=== PATIENT | male | born 1955 | race Caucasian/White ===

== ENCOUNTER 2019-06-14 02:08 | Emergency (ER) | payer OTHER ==
[2019-06-14] MEDS ORDERED: Pepcid 20 MG VIAL IV ONE ×2 (02:24→02:34)
[2019-06-14] MEDS ORDERED: BENADRYL 50 MG/ML IV ONE (02:24)
[2019-06-14] MEDS ORDERED: Racepinephrine INH Solution 2.25% IH ONE ×2 (02:25→02:32)
[2019-06-14] MEDS ORDERED: Decadron 4 MG INJ IV ONE (02:25)
--- NOTE | 2019-06-14 02:31 | ERPHSYRPT ---
- History of Present Illness Time Seen by Provider: 06/14/19 02:20 Source: patient Exam Limitations: no limitations Patient Subjective Stated Complaint: pt c/o tongue swelling Triage Nursing Assessment: pt c/o waking up with tongue swollen on left side. pt states, "I had chills before I went to bed". Pt took benadryl 50 mg at 0145. Physician History: 63 years old male with history of hypertension on amlodipine/benazepril presented in the ER with chief complaint of left sided tongue swelling which woke him up from sleep almost an hour and a half ago prior to arrival. He took 50 mg Benadryl but swelling does not seem to be improving but is actually increasing. he is complaining of some soreness/scratchiness in the throat but no difficulty breathing at present. Denies any history of angioedema or allergic reactions in the past. No fever or had some chills therefore he went to bed. Timing/Duration: today Severity: moderate Associated Symptoms: shortness of breath Allergies/Adverse Reactions: Penicillins Allergy (Intermediate, Verified 06/14/19 02:25) pt unsure Home Medications: Amlodipine/Atorvastatin [Amlodipine-Atorvast 2.5-10 mg] 1 tab PO HS 06/14/19 [ History] Metoprolol Succinate 100 mg [Toprol Xl 100 MG] 100 mg PO DAILY 06/14/19 [ History] Hx Tetanus, Diphtheria Vaccination/Date Given: Yes Hx Influenza Vaccination/Date Given: No Hx Pneumococcal Vaccination/Date Given: No Immunizations Up to Date: Yes Travel Risk - International Travel Have you traveled outside of the country in past 3 weeks: No (N) If Yes where:: [place] - Coronavirus Screening Has patient experienced Coronavirus symptoms: No - Review of Systems Constitutional: No Symptoms Eyes: No Symptoms Ears, Nose, & Throat: Mouth Swelling, Throat Swelling Respiratory: No Symptoms Cardiac: No Symptoms Abdominal/Gastrointestinal: No Symptoms Genitourinary Symptoms: No Symptoms Musculoskeletal: No Symptoms Skin: No Symptoms Neurological: No Symptoms Psychological: No Symptoms Endocrine: No Symptoms Hematologic/Lymphatic: No Symptoms Immunological/Allergic: No Symptoms - Past Medical History Pertinent Past Medical History: Yes Neurological History: No Pertinent History ENT History: No Pertinent History Cardiac History: Hypertension Respiratory History: No Pertinent History Endocrine Medical History: No Pertinent History Musculoskeletal History: Arthritis GI Medical History: No Pertinent History History: No Pertinent History Psycho-Social History: No Pertinent History Male Reproductive Disorders: No Pertinent History Other Medical History: BILATERAL KNEE SCOPES, RTC REPAIR BILATERAL SHOULDERS - Past Surgical History Past Surgical History: Yes (orthopedic) Neuro Surgical History: No Pertinent History Cardiac: No Pertinent History Respiratory: No Pertinent History Gastrointestinal: No Pertinent History Genitourinary: No Pertinent History Musculoskeletal: Joint Replacement, Orthopedic Surgery Male Surgical History: No Pertinent History Other Surgical History: shoulder sx both side, lt knee replacement - Social History Smoking Status: Former smoker Exposure to second hand smoke: Yes Alcohol Use: Chronic Drug Use: none Patient Lives Alone: No - Nursing Vital Signs Nursing Vital Signs: Initial Vital Signs Temperature 97.4 F 06/14/19 02:13 Pulse Rate 64 06/14/19 02:13 Respiratory Rate 17 06/14/19 02:13 Blood Pressure 147/88 06/14/19 02:13 O2 Sat by Pulse Oximetry 97 06/14/19 02:13 Pain Scale Pain Intensity 0 - Physical Exam General Appearance: no apparent distress Eye Exam: PERRL/EOMI, eyes nml inspection Ears, Nose, Throat Exam: TMs normal, pharyngeal erythema, other (Swollen left half of tongue. Uvula and posterior pharyngeal moderate erythema but no definite or swelling. Not in any respiratory distress.) Neck Exam: normal inspection, non-tender, supple Respiratory Exam: normal breath sounds, lungs clear, respiratory distress Cardiovascular Exam: regular rate/rhythm, normal heart sounds Gastrointestinal/Abdomen Exam: soft Extremity Exam: normal inspection Neurologic Exam: alert, oriented x 3, cooperative Skin Exam: normal color Lymphatic Exam: adenopathy SpO2 Interpretation: normal SpO2: 97 O2 Delivery: Room Air - Course Nursing assessment & vital signs reviewed: Yes Ordered Tests: Active Orders 24 hr Category Date Time Status Isolation, Initiate & Maintain Q4H Care 06/14/19 02:24 Active CBC W DIFF Stat Lab 06/14/19 02:41 Completed CMP Stat Lab 06/14/19 02:41 Completed Respiratory Therapy Assessment DAILY RT 06/14/19 02:39 Active Medication Summary Discontinued Medications Generic Name Dose Route Start Last Admin Trade Name Freq PRN Reason Stop Dose Admin Dexamethasone Sodium Phosphate 10 mg 06/14/19 02:25 06/14/19 02:39 Decadron 4 Mg Inj IV 06/14/19 02:26 10 mg STAT ONE Administration Dexamethasone Sodium Phosphate Confirm 06/14/19 02:34 Decadron 10mg Inj. Administered 06/14/19 02:35 Dose 10 mg .ROUTE .STK-MED ONE Diphenhydramine HCl 50 mg 06/14/19 02:24 06/14/19 02:39 Benadryl 50 Mg/Ml IV 06/14/19 02:25 50 mg STAT ONE Administration Diphenhydramine HCl Confirm 06/14/19 02:34 Benadryl 50 Mg/Ml Administered 06/14/19 02:35 Dose 50 mg .ROUTE .STK-MED ONE Epinephrine 0.5 ml 06/14/19 02:25 06/14/19 02:36 Racepinephrine Inh Solution 2.25% IH 06/14/19 02:26 0.5 ml STAT ONE Administration Epinephrine Confirm 06/14/19 02:32 Racepinephrine Inh Solution 2.25% Administered 06/14/19 02:33 Dose 0.5 ml IH .STK-MED ONE Famotidine 20 mg 06/14/19 02:24 06/14/19 02:39 Pepcid 20 Mg Vial IV 06/14/19 02:25 20 mg STAT ONE Administration Famotidine Confirm 06/14/19 02:34 Pepcid 20 Mg Vial Administered 06/14/19 02:35 Dose 20 mg IV .STK-MED ONE Sodium Chloride Confirm 06/14/19 02:32 Sodium Chloride 3 Ml Ud Nebules Administered 06/14/19 02:33 Dose 3 ml IH .STK-MED ONE Lab/Rad Data: Laboratory Result Diagrams 06/14/19 02:41 06/14/19 02:41 Laboratory Results 06/14/19 06/14/19 Range/Units 02:41 02:41 WBC 5.4 (4.0-10.5) K/mm3 RBC 4.00 L (4.1-5.6) M/mm3 Hgb 13.9 (12.5-18.0) gm/dl Hct 40.9 L (42-50) % MCV 102.3 H (78-100) fl MCH 34.8 H (26-32) pg MCHC 34.0 (32-36) g/dl RDW 13.2 (11.5-14.0) % Plt Count 263 (150-450) K/mm3 MPV 8.8 (7.5-11.0) fl Gran % 50.6 (36.0-66.0) % Eos # (Auto) 0.38 (0-0.5) Absolute Lymphs (auto) 1.50 (1.0-4.6) Absolute Monos (auto) 0.75 (0.0-1.3) Lymphocytes % 27.8 (24.0-44.0) % Monocytes % 13.9 H (0.0-12.0) % Eosinophils % 7.1 H (0.00-5.0) % Basophils % 0.6 (0.0-0.4) % Absolute Granulocytes 2.73 (1.4-6.9) Basophils # 0.03 (0-0.4) Sodium 140 (137-145) mmol/L Potassium 4.1 (3.5-5.1) mmol/L Chloride 104 (98-107) mmol/L Carbon Dioxide 28 (22-30) mmol/L Anion Gap 11.4 (5-15) MEQ/L BUN 17 (9-20) mg/dL Creatinine 0.89 (0.66-1.25) mg/dL Estimated GFR > 60.0 ML/MIN Glucose 101 (74-106) mg/dL Calcium 9.3 (8.4-10.2) mg/dL Total Bilirubin 0.60 (0.2-1.3) mg/dL AST 33 (17-59) U/L ALT 25 (0-50) U/L Alkaline Phosphatase 140 H (38-126) U/L Serum Total Protein 7.5 (6.3-8.2) g/dL Albumin 3.9 (3.5-5.0) g/dL - Progress Progress: improved, re-examined Progress Note: 06/14/19 06:48 63 years old is evaluated for tongue swelling/angioedema. He is given Decadron/ Benadryl/Pepcid along with racemic epi, on reevaluation his swelling is much improved. It is not completely back to normal. I have recommended observation admission but patient wants to go home. He has no difficulty breathing or swallowing. Patient feels much improved and does not think he needs to be admitted. I have discussed with Dr. Figueroa with his primary care and patient would have an appointment this afternoon. I have discussed with patient not to take benazepril and follow-up with his PCP this afternoon. Discussed signs symptoms of worsening needing return to ER which he seems understanding. 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 Follow-up with your primary care physician this afternoon in [place] office. Continue with steroids/Benadryl/Pepcid. Call 911 or return to ER for swelling tongue, throat, difficulty breathing or swallowing. Prescriptions: Diphenhydramine HCl 25 mg [Benadryl 25 mg Capsule] 25 mg PO Q4H PRN PRN # 20 capsule PRN Reason: Allergies Famotidine 20 mg [Pepcid 20 MG] 20 mg PO BID #14 tablet Prednisone 50 mg PO DAILY #5 tablet
[2019-06-14] MEDS ORDERED: Sodium Chloride 3 ML UD NEBULES IH ONE (02:32)
[2019-06-14] MEDS ORDERED: BENADRYL 50 MG/ML ONE (02:34)
[2019-06-14] MEDS ORDERED: DECADRON 10MG INJ. ONE (02:34)
[2019-06-14 02:44] LABS: Absolute Neutrophil Ct (ANC) 2.73 (1.4-6.9); BASOPHIL % 0.6 % (0.0-0.4); Basophil (Absolute #) 0.03 (0-0.4); Eosinophil % 7.1 % (0.00-5.0); Eosinophil (Absolute #) 0.38 (0-0.5); Hematocrit 40.9 % (42-50); Hemoglobin 13.9 gm/dl (12.5-18.0); Lymphocytes % 27.8 % (24.0-44.0); Mean Cell Volume 102.3 fl (78-100); Mean Corpuscular Hemoglobin 34.8 pg (26-32); Mean Platelet Volume 8.8 fl (7.5-11.0); Monocyte (Absolute #) 0.75 (0.0-1.3); Monocytes % 13.9 % (0.0-12.0); Neutrophil % 50.6 % (36.0-66.0); Platelet Count 263 K/mm3 (150-450); Red Cell Distribution Width 13.2 % (11.5-14.0); White Blood Count 5.4 K/mm3 (4.0-10.5)
[2019-06-14 02:55] LABS: ALBUMIN 3.9 g/dL (3.5-5.0); ALKALINE PHOSPHATASE 140 U/L (38-126); ANION GAP 11.4 MEQ/L (5-15); BLOOD UREA NITROGEN 17 mg/dL (9-20); CHLORIDE 104 mmol/L (98-107); Calcium 9.3 mg/dL (8.4-10.2); Carbon Dioxide 28 mmol/L (22-30); Creatinine 1 0.89 mg/dL (0.66-1.25); Glucose 101 mg/dL (74-106); Potassium 4.1 mmol/L (3.5-5.1); SGOT/AST 33 U/L (17-59); SGPT/ALT 25 U/L (0-50); SODIUM 140 mmol/L (137-145); Total Protein 7.5 g/dL (6.3-8.2)
[2019-06-14 06:46] VITALS: BP 121/80; PULSE 70
[2019-06-14 06:54] VITALS: O2SAT 97
== END 2019-06-14 07:11 | disposition home or self-care (01) ==
LOC: ED 02:08
DX: T78.3XXA Angioneurotic edema, initial encounter (principal); T46.4X5A Adverse effect of angiotensin-converting-enzyme inhibitors, initial encounter; I10 Essential (primary) hypertension; Z79.899 Other long term (current) drug therapy; R06.02 Shortness of breath
CPT/HCPCS: 36000; 36415; 80053; 85025; 93041; 94640; 96374; 96375; 99284; 99291; J1100; J1200

== ENCOUNTER 2020-01-08 16:23 | Emergency (ER) | payer OTHER ==
--- NOTE | 2020-01-08 17:04 | ERPHSYRPT ---
- History of Present Illness Time Seen by Provider: 01/08/20 16:45 Source: patient Exam Limitations: no limitations Patient Subjective Stated Complaint: Numbness Triage Nursing Assessment: Patient ambulated back to ED and transferred self to bed. Patient A+O X3. Patient's skin pink, warm and dry. Patient complains of left sided numbness to chest, neck, eye and ear. Patient states he had surgery to right shoulder today at 0900 in [facility]. Patient states he got home around 1300 and started noticing the left side of his chest and neck going numb. Patient IBARRA well. Patient states he had a nerve block during surgery and called his surgeon and was told to come to ED for eval. BS 131. Physician History: Patient had a left shoulder surgery done at the [place] under the local regional block. Marco started at 9:00 and it was finished at 11:30 AM. Patient started having numbness on the left side of the chest face and the ear at 1:00 today. The patient states that he is neck was feeling heavy at that time. The numbness has improved since then. He talked to his orthopedic surgeon who told him to come to the ER to be checked out for stroke. Patient does not have any other neuro symptoms Timing/Duration: today Severity: mild Modifying Factors: Worsens With: immobilization, medication, movement, rest Associated Symptoms: No nausea, No vomiting, No abdominal pain, No shortness of breath, No heartburn, No diaphoresis, No cough, No chills, No loss of appetite, No malaise Allergies/Adverse Reactions: Penicillins Allergy (Intermediate, Verified 01/08/20 16:34) pt unsure benazepril Allergy (Verified 01/08/20 16:36) Difficulty Swallowing Patient states caused swelling to tongue and throat; almost needed tubed. Home Medications: Amlodipine/Atorvastatin [Amlodipine-Atorvast 2.5-10 mg] 1 tab PO HS 06/14/19 [History] Metoprolol Succinate 100 mg [Toprol Xl 100 MG] 100 mg PO DAILY 06/14/19 [History] Hx Tetanus, Diphtheria Vaccination/Date Given: Yes Hx Influenza Vaccination/Date Given: No Hx Pneumococcal Vaccination/Date Given: No Immunizations Up to Date: Yes Travel Risk - International Travel Have you traveled outside of the country in past 3 weeks: No - Coronavirus Screening Are you exhibiting any of the following symptoms?: No Close contact with a COVID-19 positive Pt in past 14-21 Days: No - Review of Systems Constitutional: No Fever, No Chills Eyes: No Symptoms Ears, Nose, & Throat: No Symptoms Respiratory: No Cough, No Dyspnea Cardiac: No Chest Pain, No Edema, No Syncope Abdominal/Gastrointestinal: No Abdominal Pain, No Nausea, No Vomiting, No Diarrhea Genitourinary Symptoms: No Dysuria Musculoskeletal: No Back Pain, No Neck Pain Skin: No Rash Neurological: Dizziness, Focal Weakness, Parasthesia, Sensory Changes, Other (Left facial, left chest and left ear numbness.) Psychological: No Symptoms Endocrine: No Symptoms All Other Systems: Reviewed and Negative - Past Medical History Pertinent Past Medical History: Yes Neurological History: No Pertinent History ENT History: No Pertinent History Cardiac History: High Cholesterol, Hypertension Respiratory History: No Pertinent History Endocrine Medical History: No Pertinent History Musculoskeletal History: Arthritis GI Medical History: No Pertinent History History: No Pertinent History Psycho-Social History: No Pertinent History Male Reproductive Disorders: No Pertinent History Other Medical History: BILATERAL KNEE SCOPES, RTC REPAIR BILATERAL SHOULDERSX 2 - Past Surgical History Past Surgical History: Yes (orthopedic) Neuro Surgical History: No Pertinent History Cardiac: No Pertinent History Respiratory: No Pertinent History Gastrointestinal: No Pertinent History Genitourinary: No Pertinent History Musculoskeletal: Joint Replacement, Orthopedic Surgery Male Surgical History: No Pertinent History Other Surgical History: shoulder sx both side, lt knee replacement - Social History Smoking Status: Former smoker Exposure to second hand smoke: Yes Alcohol Use: Chronic Drug Use: none Patient Lives Alone: No - Nursing Vital Signs Nursing Vital Signs: Initial Vital Signs Temperature 98.0 F 01/08/20 16:39 Pulse Rate 86 01/08/20 16:39 Respiratory Rate 18 01/08/20 16:39 Blood Pressure 153/89 01/08/20 16:39 O2 Sat by Pulse Oximetry 95 01/08/20 16:39 Pain Scale Pain Intensity 0 - Physical Exam General Appearance: no apparent distress, alert Eye Exam: PERRL/EOMI, eyes nml inspection Ears, Nose, Throat Exam: normal ENT inspection, TMs normal, pharynx normal, m oist mucous membranes Neck Exam: normal inspection, non-tender, supple, full range of motion Respiratory Exam: normal breath sounds, lungs clear, No respiratory distress Cardiovascular Exam: regular rate/rhythm, normal heart sounds, normal peripheral pulses Gastrointestinal/Abdomen Exam: soft, normal bowel sounds, No tenderness, No mass Back Exam: normal inspection, normal range of motion, No CVA tenderness, No vertebral tenderness Extremity Exam: normal inspection, normal range of motion, pelvis stable Neurologic Exam: alert, oriented x 3, cooperative, normal mood/affect, nml cerebellar function, nml station & gait, other (Left facial, left chest and left ear numbness.), No motor deficits, No disoriented, No confusion, No agitation, No uncooperative, No intoxicated appearance, No depressed mood/affect, No motor weakness, No facial droop, No slurred speech, No aphasia, No dysarthria, No abnormal cerebellar tests, No abnormal educational administration teacher II-XII, No EOM palsy Skin Exam: normal color, warm, dry, No rash Lymphatic Exam: No adenopathy SpO2: 95 - Course Nursing assessment & vital signs reviewed: Yes EKG Interpreted by Me: RATE (86), NORMAL AXIS, NORMAL INTERVALS, NORMAL QRS, Q-wave Ordered Tests: Active Orders 24 hr Category Date Time Status Sack Department Supervisor STAT Care 01/08/20 16:45 Active EKG-ER Only STAT Care 01/08/20 16:45 Active IV Insertion STAT Care 01/08/20 16:45 Active NPO (ED) STAT Care 01/08/20 16:45 Active HEAD WITHOUT CONTRAST [CT] Stat Exams 01/08/20 16:45 Completed CBC W DIFF Stat Lab 01/08/20 17:00 Completed CMP Stat Lab 01/08/20 17:00 Completed POCT GLUCOSE Stat Lab 01/08/20 16:42 Completed TROPONIN Stat Lab 01/08/20 17:00 Completed Lab/Rad Data: Laboratory Result Diagrams 01/08/20 17:00 01/08/20 17:00 Laboratory Results 01/08/20 01/08/20 01/08/20 Range/Units 17:00 17:00 17:00 WBC 10.5 (4.0-10.5) K/mm3 RBC 4.13 (4.1-5.6) M/mm3 Hgb 15.1 (12.5-18.0) gm/dl Hct 42.5 (42-50) % MCV 102.9 H (78-100) fl MCH 36.6 H (26-32) pg MCHC 35.5 (32-36) g/dl RDW 13.0 (11.5-14.0) % Plt Count 260 (150-450) K/mm3 MPV 9.1 (7.5-11.0) fl Gran % 90.7 H (36.0-66.0) % Eos # (Auto) 0.01 (0-0.5) Absolute Lymphs (auto) 0.55 L (1.0-4.6) Absolute Monos (auto) 0.42 (0.0-1.3) Lymphocytes % 5.2 L (24.0-44.0) % Monocytes % 4.0 (0.0-12.0) % Eosinophils % 0.1 (0.00-5.0) % Basophils % 0.0 (0.0-0.4) % Absolute Granulocytes 9.55 H (1.4-6.9) Basophils # 0 (0-0.4) Sodium 136 L (137-145) mmol/L Potassium 4.5 (3.5-5.1) mmol/L Chloride 106 (98-107) mmol/L Carbon Dioxide 21 L (22-30) mmol/L Anion Gap 13.4 (5-15) MEQ/L BUN 18 (9-20) mg/dL Creatinine 0.92 (0.66-1.25) mg/dL Estimated GFR > 60.0 ML/MIN Glucose 138 H (74-106) mg/dL POC Glucometer (74 to 106) mg/dL Calcium 9.8 (8.4-10.2) mg/dL Total Bilirubin 0.50 (0.2-1.3) mg/dL AST 40 (17-59) U/L ALT 36 (0-50) U/L Alkaline Phosphatase 117 (38-126) U/L Troponin I < 0.012 (0.000-0.034) ng/mL Serum Total Protein 7.4 (6.3-8.2) g/dL Albumin 4.3 (3.5-5.0) g/dL 01/08/20 Range/Units 16:42 WBC (4.0-10.5) K/mm3 RBC (4.1-5.6) M/mm3 Hgb (12.5-18.0) gm/dl Hct (42-50) % MCV (78-100) fl MCH (26-32) pg MCHC (32-36) g/dl RDW (11.5-14.0) % Plt Count (150-450) K/mm3 MPV (7.5-11.0) fl Gran % (36.0-66.0) % Eos # (Auto) (0-0.5) Absolute Lymphs (auto) (1.0-4.6) Absolute Monos (auto) (0.0-1.3) Lymphocytes % (24.0-44.0) % Monocytes % (0.0-12.0) % Eosinophils % (0.00-5.0) % Basophils % (0.0-0.4) % Absolute Granulocytes (1.4-6.9) Basophils # (0-0.4) Sodium (137-145) mmol/L Potassium (3.5-5.1) mmol/L Chloride (98-107) mmol/L Carbon Dioxide (22-30) mmol/L Anion Gap (5-15) MEQ/L BUN (9-20) mg/dL Creatinine (0.66-1.25) mg/dL Estimated GFR ML/MIN Glucose (74-106) mg/dL POC Glucometer 131 H (74 to 106) mg/dL Calcium (8.4-10.2) mg/dL Total Bilirubin (0.2-1.3) mg/dL AST (17-59) U/L ALT (0-50) U/L Alkaline Phosphatase (38-126) U/L Troponin I (0.000-0.034) ng/mL Serum Total Protein (6.3-8.2) g/dL Albumin (3.5-5.0) g/dL - Progress Progress: improved Progress Note: 01/08/20 18:49 And is asymptomatic. A CT scan normal. Other work-up is negative. Patient does not have any chest pain or shortness of breath left facial and neck paresthesia was probably secondary to the local block that was done earlier today. Patient wants to go home. Acute life or limb threatening condition on discharge. Counseled pt/family regarding: lab results, diagnosis, need for follow-up, rad results - Departure Departure Disposition: Home Clinical Impression: Facial paresthesia Condition: Good Critical Care Time: No Referrals: ARMANI,KARTHIK, MD [Primary Care Provider] - Follow Up with PCP
[2020-01-08 17:06] LABS: Absolute Neutrophil Ct (ANC) 9.55 (1.4-6.9); Basophil (Absolute #) 0 (0-0.4); Eosinophil % 0.1 % (0.00-5.0); Eosinophil (Absolute #) 0.01 (0-0.5); Hematocrit 42.5 % (42-50); Hemoglobin 15.1 gm/dl (12.5-18.0); Lymphocyte (Absolute #) 0.55 (1.0-4.6); Lymphocytes % 5.2 % (24.0-44.0); Mean Cell Volume 102.9 fl (78-100); Mean Corpuscular Hemoglobin 36.6 pg (26-32); Mean Corpuscular Hgb Concent. 35.5 g/dl (32-36); Mean Platelet Volume 9.1 fl (7.5-11.0); Monocyte (Absolute #) 0.42 (0.0-1.3); Neutrophil % 90.7 % (36.0-66.0); Platelet Count 260 K/mm3 (150-450); Red Blood Count 4.13 M/mm3 (4.1-5.6); White Blood Count 10.5 K/mm3 (4.0-10.5)
--- NOTE | 2020-01-08 17:25 | XRAY ---
Indication: Left face and chest chest numbness radiating left arm. Multiple contiguous axial images obtained through the head without contrast. Comparison: September 21, 2014. Stable age-appropriate global atrophy. No acute intracranial hemorrhage, abnormal extra-axial fluid collection, or mass effect. Fourth ventricle is midline without hydrocephalus. Ray-white matter differentiation preserved. Bony calvarium intact. Stable partially visualized 2.5 cm left maxillary sinus polyp/retention cyst. Remaining visualized paranasal sinuses and mastoid air cells are clear. Impression: Stable normal aging brain and left maxillary sinus polyp/retention cyst. No new or acute intracranial abnormalities.
[2020-01-08 17:41] LABS: ALBUMIN 4.3 g/dL (3.5-5.0); ALKALINE PHOSPHATASE 117 U/L (38-126); ANION GAP 13.4 MEQ/L (5-15); BLOOD UREA NITROGEN 18 mg/dL (9-20); CHLORIDE 106 mmol/L (98-107); Calcium 9.8 mg/dL (8.4-10.2); Carbon Dioxide 21 mmol/L (22-30); Creatinine 1 0.92 mg/dL (0.66-1.25); EST GLOMERULAR FILTRATION RATE > 60.0 ML/MIN; Glucose 138 mg/dL (74-106); Potassium 4.5 mmol/L (3.5-5.1); SGOT/AST 40 U/L (17-59); SGPT/ALT 36 U/L (0-50); SODIUM 136 mmol/L (137-145); Total Protein 7.4 g/dL (6.3-8.2)
[2020-01-08 19:05] VITALS: BP 132/7; PULSE 83; O2SAT 94
[2020-01-08 22:16] LABS: Slide Review 1 YES
== END 2020-01-08 19:13 | disposition home or self-care (01) ==
LOC: ED 16:23
DX: R20.2 Paresthesia of skin (principal); R42 Dizziness and giddiness; I10 Essential (primary) hypertension; E78.00 Pure hypercholesterolemia, unspecified; Z79.899 Other long term (current) drug therapy
CPT/HCPCS: 36000; 36415; 70450; 80053; 82947; 84484; 85025; 93005; 93041; 99284

== ENCOUNTER 2021-03-12 05:52 | Emergency (ER) | payer OTHER ==
[2021-03-12] MEDS ORDERED: solu-MEDROL 125 MG, Sterile H2O 10 ml 2 ML IV ONE ×4 (06:38→06:46)
[2021-03-12] MEDS ORDERED: Sterile H2O 10 ml IJ ONE (06:44)
[2021-03-12] MEDS ORDERED: solu-MEDROL ONE (06:44)
--- NOTE | 2021-03-12 06:52 | ERPHSYRPT ---
<ORLANDO TAPIA - Last Filed: 03/12/21 09:50> - History of Present Illness Source: patient Exam Limitations: no limitations Patient Subjective Stated Complaint: " I feel really short of breath, I've been coughing and my body aches all over." Triage Nursing Assessment: Pt presents to ER with complaints of shortness of breath, cough, body aches x 3 days. States shortness of breath got increasingly worse tonight along with symptoms of dizziness and lightheadness. Pt states has had nausea, vomiting, and diarrhea. Complains of productive cough with green sputum. Pt appears short of breath. Skin is hot, pink, and dry. Pt is alert and oriented x 3. Timing/Duration: day(s) (3), gradual onset, worse Activities at Onset: activity Severity of Dyspnea-Max: moderate Severity of Dyspnea-Current: moderate Modifying Factors: Worsens With: coughing, deep breath, exertion, lying down Associated Symptoms: cough, chest pain/discomfort, fever, wheezing, chills, heaviness, muscle spasms hands, painful breathing, productive cough, sweating, tightness Hx Tetanus, Diphtheria Vaccination/Date Given: Yes Hx Influenza Vaccination/Date Given: No Hx Pneumococcal Vaccination/Date Given: No Immunizations Up to Date: Yes <ANTONIO COLLIER - Last Filed: 03/13/21 21:10> - History of Present Illness Time Seen by Provider: 03/12/21 06:22 Physician History: 65-year-old male presented in the ER with 3 days history of cough congestion and shortness of breath along with body aches fatigue and tiredness. Patient reports cough productive of yellow-green sputum, more with lying down and having choking sensations since last night. Shortness of breath gets worse with activity with associated chest tightness and pressure/wheezing and feels difficulty taking a deep breath and having shallow respiration. Vaccinated for COVID-19. (ANTONIO COLLIER) Allergies/Adverse Reactions: Penicillins Allergy (Intermediate, Verified 03/12/21 06:06) pt unsure benazepril Allergy (Verified 03/12/21 06:06) Difficulty Swallowing Patient states caused swelling to tongue and throat; almost needed tubed. Home Medications: Metoprolol Succinate 100 mg [Toprol Xl 100 MG] 100 mg PO DAILY 06/14/19 [History] Travel Risk - International Travel Have you traveled outside of the country in past 3 weeks: No - Coronavirus Screening Are you exhibiting any of the following symptoms?: Yes Symptoms: Cough: New Onset, Shortness of Breath, Headaches/Body Aches/Fatigue Close contact with a COVID-19 positive Pt in past 14-21 Days: No - Vaccine Status Have you recieved a Covid-19 vaccination: Yes Imaging Scheduler: Moderna - Vaccination Dates Date of 2cond Vaccination (if applicable): 11/17/20 <ANTONIO COLLIER - Last Filed: 03/13/21 21:10> - Review of Systems Constitutional: Fever, Chills, Fatigue, Weakness Eyes: No Symptoms Ears, Nose, & Throat: Nose Congestion, Throat Swelling Respiratory: Cough, Dyspnea, Wheezing Cardiac: Chest Pain Abdominal/Gastrointestinal: No Symptoms Genitourinary Symptoms: No Symptoms Musculoskeletal: Myalgias Skin: No Symptoms Neurological: Headache Psychological: No Symptoms Endocrine: No Symptoms Hematologic/Lymphatic: No Symptoms Immunological/Allergic: No Symptoms <ANTONIO COLLIER - Last Filed: 03/13/21 21:10> - Past Medical History Pertinent Past Medical History: Yes Neurological History: No Pertinent History ENT History: No Pertinent History Cardiac History: Hypertension Respiratory History: No Pertinent History Endocrine Medical History: No Pertinent History Musculoskeletal History: Other GI Medical History: No Pertinent History History: No Pertinent History Psycho-Social History: No Pertinent History Male Reproductive Disorders: No Pertinent History Other Medical History: HX OF TWO PREVIOUS SURGERIES LEFT SHOULDER. HX OF PREVIOUS ARTHROSCOPY RIGHT KNEE. - Past Surgical History Past Surgical History: Yes (orthopedic) Neuro Surgical History: No Pertinent History Cardiac: No Pertinent History Respiratory: No Pertinent History Gastrointestinal: No Pertinent History Genitourinary: No Pertinent History Musculoskeletal: Joint Replacement, Orthopedic Surgery Male Surgical History: No Pertinent History Other Surgical History: shoulder sx both side, lt knee replacement - Social History Smoking Status: Former smoker Exposure to second hand smoke: No Alcohol Use: Chronic Drug Use: none Patient Lives Alone: No <ANTONIO COLLIER - Last Filed: 03/13/21 21:10> - Physical Exam General Appearance: no apparent distress, alert Eye Exam: PERRL/EOMI, eyes nml inspection Ears, Nose, Throat Exam: nasal congestion, pharyngeal erythema Neck Exam: normal inspection, non-tender, supple, full range of motion Respiratory Exam: normal breath sounds, lungs clear Cardiovascular/Chest Exam: normal heart sounds, tachycardia Abdominal/Gastrointestinal Exam: soft, normal bowel sounds, No tenderness Extremity Exam: non-tender, normal range of motion Neurologic Exam: alert, oriented x 3, cooperative, 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 Nonspecific T wave changes) <ANTONIO COLLIER - Last Filed: 03/13/21 21:10> Ordered Tests: Medication Summary Discontinued Medications Generic Name Dose Route Start Last Admin Trade Name Luisq PRN Reason Stop Dose Admin Acetaminophen 975 mg 03/12/21 06:56 03/12/21 06:58 Acetaminophen 325 Mg Tablet PO 03/12/21 06:57 975 mg STAT STA Administration Acetaminophen Confirm 03/12/21 06:58 Acetaminophen 325 Mg Tablet Administered 03/12/21 06:59 Dose 975 mg .ROUTE .STK-MED ONE Apixaban 5 mg 03/12/21 09:58 03/12/21 10:09 Apixaban 2.5 Mg Tablet PO 03/12/21 09:59 5 mg STAT ONE Administration Methylprednisolone Sodium 0 mg 03/12/21 06:38 03/12/21 06:47 Succinate 125 mg/ Sterile IV 03/12/21 06:39 Not Given Water 2 ml STAT ONE Methylprednisolone Sodium 0 mg 03/12/21 06:46 03/12/21 06:48 Succinate 125 mg/ Sterile IV 03/12/21 06:47 125 mg Water 2 ml STAT ONE Administration Enoxaparin Sodium 90 mg 03/12/21 09:46 03/12/21 09:54 Enoxaparin Sodium 120 Mg/0.8 Ml Syringe SQ 03/12/21 09:47 90 mg STAT STA Administration Enoxaparin Sodium Confirm 03/12/21 09:53 Enoxaparin Sodium 120 Mg/0.8 Ml Syringe Administered 03/12/21 09:54 Dose 120 mg SQ .STK-MED ONE Sodium Chloride 500 mls @ 500 mls/hr 03/12/21 07:38 03/12/21 10:20 Sodium Chloride 0.9% 500 Ml IV 03/12/21 08:37 Infused .Q1H ONE Infusion Sodium Chloride Confirm 03/12/21 07:49 Sodium Chloride 0.9% 500 Ml Administered 03/12/21 07:50 Dose 500 mls @ ud IV .STK-MED ONE Methylprednisolone Sodium Succinate Confirm 03/12/21 06:44 Methylprednis Sod Succ 125 Mg/2 Ml Vial Administered 03/12/21 06:45 Dose 125 mg .ROUTE .STK-MED ONE Sterile Water Confirm 03/12/21 06:44 Water For Injection,Sterile 10 Ml Vial Administered 03/12/21 06:45 Dose 10 ml IJ .STK-MED ONE Lab/Rad Data: Laboratory Result Diagrams 03/12/21 06:08 03/12/21 06:08 Laboratory Results 03/12/21 03/12/21 03/12/21 Range/Units 10:07 09:45 09:15 WBC (4.0-10.5) K/mm3 RBC (4.1-5.6) M/mm3 Hgb (12.5-18.0) gm/dl Hct (42-50) % MCV (78-100) fl MCH (26-32) pg MCHC (32-36) g/dl RDW (11.5-14.0) % Plt Count (150-450) K/mm3 MPV (7.5-11.0) fl Gran % (36.0-66.0) % Eos # (Auto) (0-0.5) Absolute Lymphs (auto) (1.0-4.6) Absolute Monos (auto) (0.0-1.3) Lymphocytes % (24.0-44.0) % Monocytes % (0.0-12.0) % Eosinophils % (0.00-5.0) % Basophils % (0.0-0.4) % Absolute Granulocytes (1.4-6.9) Basophils # (0-0.4) D-Dimer (215-500) ng/mL Sodium (137-145) mmol/L Potassium (3.5-5.1) mmol/L Chloride (98-107) mmol/L Carbon Dioxide (22-30) mmol/L Anion Gap (5-15) MEQ/L BUN (9-20) mg/dL Creatinine (0.66-1.25) mg/dL Estimated GFR ML/MIN Glucose (74-106) mg/dL Lactic Acid 0.8 (0.4-2.0) Calcium (8.4-10.2) mg/dL Magnesium (1.6-2.3) mg/dL Total Bilirubin (0.2-1.3) mg/dL AST (17-59) U/L ALT (0-50) U/L Alkaline Phosphatase (38-126) U/L Troponin I < 0.012 (0.000-0.034) ng/mL NT-Pro-B Natriuret Pep (0-900) pg/mL Serum Total Protein (6.3-8.2) g/dL Albumin (3.5-5.0) g/dL Influenza Type A Ag NEGATIVE (NEGATIVE) Influenza Type B Ag NEGATIVE (NEGATIVE) RSV (PCR) NEGATIVE (Negative) SARS-CoV-2 (PCR) POSITIVE A (NEGATIVE) 03/12/21 03/12/21 03/12/21 Range/Units 07:00 06:38 06:08 WBC (4.0-10.5) K/mm3 RBC (4.1-5.6) M/mm3 Hgb (12.5-18.0) gm/dl Hct (42-50) % MCV (78-100) fl MCH (26-32) pg MCHC (32-36) g/dl RDW (11.5-14.0) % Plt Count (150-450) K/mm3 MPV (7.5-11.0) fl Gran % (36.0-66.0) % Eos # (Auto) (0-0.5) Absolute Lymphs (auto) (1.0-4.6) Absolute Monos (auto) (0.0-1.3) Lymphocytes % (24.0-44.0) % Monocytes % (0.0-12.0) % Eosinophils % (0.00-5.0) % Basophils % (0.0-0.4) % Absolute Granulocytes (1.4-6.9) Basophils # (0-0.4) D-Dimer (215-500) ng/mL Sodium (137-145) mmol/L Potassium (3.5-5.1) mmol/L Chloride (98-107) mmol/L Carbon Dioxide (22-30) mmol/L Anion Gap (5-15) MEQ/L BUN (9-20) mg/dL Creatinine (0.66-1.25) mg/dL Estimated GFR ML/MIN Glucose (74-106) mg/dL Lactic Acid 3.0 H (0.4-2.0) Calcium (8.4-10.2) mg/dL Magnesium (1.6-2.3) mg/dL Total Bilirubin (0.2-1.3) mg/dL AST (17-59) U/L ALT (0-50) U/L Alkaline Phosphatase (38-126) U/L Troponin I < 0.012 (0.000-0.034) ng/mL NT-Pro-B Natriuret Pep (0-900) pg/mL Serum Total Protein (6.3-8.2) g/dL Albumin (3.5-5.0) g/dL Influenza Type A Ag NEGATIVE (NEGATIVE) Influenza Type B Ag NEGATIVE (NEGATIVE) RSV (PCR) (Negative) SARS-CoV-2 (PCR) (NEGATIVE) 03/12/21 03/12/21 03/12/21 Range/Units 06:08 06:08 06:08 WBC 6.9 (4.0-10.5) K/mm3 RBC 4.19 (4.1-5.6) M/mm3 Hgb 14.9 (12.5-18.0) gm/dl Hct 43.5 (42-50) % MCV 103.8 H (78-100) fl MCH 35.6 H (26-32) pg MCHC 34.3 (32-36) g/dl RDW 12.4 (11.5-14.0) % Plt Count 204 (150-450) K/mm3 MPV 9.4 (7.5-11.0) fl Gran % 79.3 H (36.0-66.0) % Eos # (Auto) 0.03 (0-0.5) Absolute Lymphs (auto) 0.69 L (1.0-4.6) Absolute Monos (auto) 0.70 (0.0-1.3) Lymphocytes % 10.0 L (24.0-44.0) % Monocytes % 10.2 (0.0-12.0) % Eosinophils % 0.4 (0.00-5.0) % Basophils % 0.1 (0.0-0.4) % Absolute Granulocytes 5.44 (1.4-6.9) Basophils # 0.01 (0-0.4) D-Dimer 1009 H* (215-500) ng/mL Sodium 135 L (137-145) mmol/L Potassium 4.1 (3.5-5.1) mmol/L Chloride 104 (98-107) mmol/L Carbon Dioxide 22 (22-30) mmol/L Anion Gap 13.2 (5-15) MEQ/L BUN 11 (9-20) mg/dL Creatinine 0.91 (0.66-1.25) mg/dL Estimated GFR > 60.0 ML/MIN Glucose 114 H (74-106) mg/dL Lactic Acid (0.4-2.0) Calcium 9.0 (8.4-10.2) mg/dL Magnesium 1.7 (1.6-2.3) mg/dL Total Bilirubin 0.70 (0.2-1.3) mg/dL AST 61 H (17-59) U/L ALT 48 (0-50) U/L Alkaline Phosphatase 105 (38-126) U/L Troponin I (0.000-0.034) ng/mL NT-Pro-B Natriuret Pep 221 (0-900) pg/mL Serum Total Protein 7.1 (6.3-8.2) g/dL Albumin 4.2 (3.5-5.0) g/dL Influenza Type A Ag (NEGATIVE) Influenza Type B Ag (NEGATIVE) RSV (PCR) (Negative) SARS-CoV-2 (PCR) (NEGATIVE) - Progress Progress: improved, re-examined Air Movement: good Blood Culture(s) Obtained: Yes Antibiotics given: Yes Discussed with : Bella Counseled pt/family regarding: lab results, diagnosis, need for follow-up, rad results <ORLANDO TAPIA - Last Filed: 03/12/21 09:50> - Progress Progress Note: 03/12/21 09:50 Chest x-ray shows new bibasilar infiltrates versus atelectasis. CAT scan of the chest shows a question of a nonoccluding left upper lobe and left lower lobe segmental pulmonary emboli. Medical decision making: I spoke with Dr. Friend, who is covering for this patient's primary care physician in his absence, regarding the patient's work-up and findings on CAT scan of the chest. Patient is hemodynamically stable. His oxygenation on room air is running between [address] Friend recommends anticoagulating him as an outpatient. I gave the patient Lovenox. We will then give him a dose of oral Eliquis and provide him with outpatient antibiotics, Eliquis, prednisone, and cough medicine as well as an inhaler of albuterol. I think this is reasonable. (ORLANDO TAPIA) - Departure Departure Disposition: Home Critical Care Time: Yes Critical Care Time(excluding separately billable procedures): Critical 30-74 mins (30) <ORLANDO TAPIA - Last Filed: 03/12/21 09:50> <ANTONIO COLLIER - Last Filed: 03/13/21 21:10> - Departure Clinical Impression: Upper respiratory infection, Left pulmonary embolus Condition: Stable Referrals: KARTHIK LOMELI MD [Primary Care Provider] - Follow up/PCP as directed Instructions: Shortness of Breath (Dyspnea) (DC), Pulmonary Embolism (Blood Clot in the Lungs) (DC), Coronavirus Disease 2019 (COVID-19) (DC) Additional Instructions: Take your medications as prescribed. Return to the emergency department if sym ptoms worsen. Quarantine yourself until the results of your COVID-19 test returned. Prescriptions: Hydrocodone/Acetaminophen [Hydrocodone-Acetamn 7.5-325/15] 10 ml PO Q8H PRN PRN #120 ml MDD 30 ml PRN Reason: Cough Prednisone 10 mg [Deltasone 10 mg] 10 mg PO TID #12 tablet Apixaban [Eliquis 5 mg Tablet] 5 mg PO BID #30 tablet Albuterol 8 gm Mdi Hfa [Ventolin Hfa MDI] 8 gm IH Q4H #1 gm Azithromycin 250 mg [Zithromax 250 MG TABLET] 250 mg PO ZPACK #6 tablet
[2021-03-12] MEDS ORDERED: TYLENOL 325 MG PO STA (06:56)
[2021-03-12] MEDS ORDERED: TYLENOL 325 MG ONE (06:58)
[2021-03-12 07:13] LABS: Absolute Neutrophil Ct (ANC) 5.44 (1.4-6.9); Basophil (Absolute #) 0.01 (0-0.4); Eosinophil % 0.4 % (0.00-5.0); Eosinophil (Absolute #) 0.03 (0-0.5); Hematocrit 43.5 % (42-50); Hemoglobin 14.9 gm/dl (12.5-18.0); Lymphocyte (Absolute #) 0.69 (1.0-4.6); Mean Cell Volume 103.8 fl (78-100); Mean Corpuscular Hemoglobin 35.6 pg (26-32); Mean Corpuscular Hgb Concent. 34.3 g/dl (32-36); Mean Platelet Volume 9.4 fl (7.5-11.0); Monocytes % 10.2 % (0.0-12.0); Neutrophil % 79.3 % (36.0-66.0); Platelet Count 204 K/mm3 (150-450); Red Blood Count 4.19 M/mm3 (4.1-5.6); Red Cell Distribution Width 12.4 % (11.5-14.0); White Blood Count 6.9 K/mm3 (4.0-10.5)
[2021-03-12 07:31] LABS: ALBUMIN 4.2 g/dL (3.5-5.0); ALKALINE PHOSPHATASE 105 U/L (38-126); ANION GAP 13.2 MEQ/L (5-15); BLOOD UREA NITROGEN 11 mg/dL (9-20); CHLORIDE 104 mmol/L (98-107); Carbon Dioxide 22 mmol/L (22-30); Creatinine 1 0.91 mg/dL (0.66-1.25); EST GLOMERULAR FILTRATION RATE > 60.0 ML/MIN; Glucose 114 mg/dL (74-106); MAGNESIUM 1.7 mg/dL (1.6-2.3); NT PRO BNP 221 pg/mL (0-900); Potassium 4.1 mmol/L (3.5-5.1); SGOT/AST 61 U/L (17-59); SGPT/ALT 48 U/L (0-50); SODIUM 135 mmol/L (137-145); Total Protein 7.1 g/dL (6.3-8.2)
[2021-03-12] MEDS ORDERED: Sodium Chloride 0.9% 500 ML 500 ML IV ONE ×2 (07:38→07:49)
[2021-03-12 07:50] LABS: INFLUENZA A NEGATIVE (NEGATIVE); INFLUENZA B NEGATIVE (NEGATIVE)
--- NOTE | 2021-03-12 09:26 | XRAY ---
Indication: Short of breath. Suspect Covid 19. Comparison: April 22, 2010. Portable chest less inflated with new bibasilar infiltrates versus atelectasis. Remaining heart and upper lungs unremarkable. Bony thorax intact again with mild osteopenia and degenerative changes.
--- NOTE | 2021-03-12 09:32 | XRAY ---
Indication: Short of breath, cough, congestion, chest pain, nausea, and vomiting. Multiple contiguous axial images obtained through the chest using 100 cc Isovue 370 contrast and PE protocol. Comparison: None There is adequate opacification of the pulmonary arteries. However mild respiration artifact limits evaluation of the more distal lobar and segmental branches. Query nonoccluding pulmonary emboli in the anterior segmental branch of the left lower lobe and lesser degree posterior segmental branch of the left upper lobe. Heart is not enlarged. Aorta is mildly arteriosclerotic without aneurysm/dissection. No pathologic mediastinal/hilar lymphadenopathy. Lungs demonstrates diffuse pulmonary edema and moderate bilateral dependent atelectasis greatest in both lung bases. No suspicious pulmonary mass, effusion, or pneumothorax. Bony thorax intact with mild degenerative changes throughout the spine. Limited upper abdomen demonstrates 3 hepatic hypodense lesions largest 1 cm, cysts versus hemangiomas. Impression: 1. Pulmonary embolus evaluation limited due to respiration artifact. Query nonoccluding left upper and left lower lobe segmental pulmonary emboli. 2. Diffuse pulmonary emphysema and bilateral dependent atelectasis 3. Hepatic hypodense lesions, cysts versus hemangiomas.
[2021-03-12] MEDS ORDERED: ENOXAPARIN SODIUM SQ STA (09:46)
[2021-03-12] MEDS ORDERED: ENOXAPARIN SODIUM SQ ONE (09:53)
[2021-03-12] MEDS ORDERED: ELIQUIS 2.5 MG TABLET PO ONE (09:58)
[2021-03-12 10:52] LABS: INFLUENZA A NEGATIVE (NEGATIVE); INFLUENZA B NEGATIVE (NEGATIVE); RESPIRATORY SYNCTIAL VIRUS NEGATIVE (Negative)
[2021-03-12 10:54] LABS: SARS-CoV-2 Xpert Express POSITIVE (NEGATIVE)
[2021-03-12 11:20] VITALS: BP 172/78; PULSE 72
[2021-03-13 21:11] VITALS: O2SAT 98
== END 2021-03-12 11:20 | disposition home or self-care (01) ==
LOC: ED 05:52
DX: J06.9 Acute upper respiratory infection, unspecified (principal); I26.99 Other pulmonary embolism without acute cor pulmonale; U07.1 COVID-19; R05.9 Cough, unspecified; R09.81 Nasal congestion; R06.02 Shortness of breath; M79.10 Myalgia, unspecified site; R53.83 Other fatigue; I10 Essential (primary) hypertension; Z79.891 Long term (current) use of opiate analgesic; Z79.52 Long term (current) use of systemic steroids; Z79.01 Long term (current) use of anticoagulants
CPT/HCPCS: 0241U; 36000; 36415; 71045; 71260; 80053; 83605; 83735; 83880; 84484; 85025; 85379; 87040; 87400; 93005; 96372; 96374; 99284; 99291; J1650; J2930; A9270-GY

== ENCOUNTER 2021-03-17 06:37 | Emergency (ER) | payer OTHER ==
--- NOTE | 2021-03-17 07:28 | ERPHSYRPT ---
- History of Present Illness Source: patient Exam Limitations: no limitations Patient Subjective Stated Complaint: Patient states he tested positive for COVID on Monday and has a blood clot. States he had a great day yesterday and didn't feel sick at all. Woke up at 2am with a severe headache. States pain increased in head then spread to left shoulder muscles. SOB increased around 0400 and it go so bad that he came to the ED. Triage Nursing Assessment: Patient brought back to ED in a W/C. He was assisted into bed. Patient SOB, pale, diaphoretic, cool to touch. He is alert and oriented and answering questions appropriately. Lungs diminished throughout. No cough noted. Denies chest pain. Physician History: 65 yo wm diagnosed w CV19/PE's on 03/12/20 on Eliquis presents w frontal KAMARA since 2:00AM. Pain is 3/10. He has nausea but denies vomiting/focal weakness/CP. Pt has dyspnea, but sats 94% on RA. Timing/Duration: other (2AM) Quality: aching Head Pain Location: frontal Severity of Pain-Max: severe Severity of Pain-Current: moderate Recent Head Trauma: no recent headache/trauma Associated Symptoms: fatigue, fever/chills, nausea/vomiting, nasal congestion, nasal drainage, No confusion, No dizziness, No facial pain, No flushing, No light-headedness, No loss of consciousness, No neck pain, No numbness in legs/feet, No rash, No sweating, No scotoma, No seizures, No sinus infection, No sensitive to light, No speech problems, No stiff neck, No trouble walking, No vision changes Previous symptoms: no prior history Allergies/Adverse Reactions: Penicillins Allergy (Intermediate, Verified 03/17/21 06:49) pt unsure benazepril Allergy (Verified 03/17/21 06:49) Difficulty Swallowing Patient states caused swelling to tongue and throat; almost needed tubed. 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 - Vaccination Dates Date of 2cond Vaccination (if applicable): 11/17/20 - Review of Systems Constitutional: No Symptoms, Fever, Chills, Fatigue, Lethargy Eyes: No Symptoms Ears, Nose, & Throat: No Symptoms, Nose Discharge Respiratory: No Symptoms, Cough, Dyspnea Cardiac: No Symptoms Abdominal/Gastrointestinal: No Symptoms, Nausea Genitourinary Symptoms: No Symptoms Musculoskeletal: No Symptoms, Arthralgias, Myalgias Skin: No Symptoms Neurological: No Symptoms, Headache Psychological: No Symptoms Endocrine: No Symptoms Hematologic/Lymphatic: No Symptoms Immunological/Allergic: No Symptoms - Past Medical History Pertinent Past Medical History: Yes Neurological History: No Pertinent History ENT History: No Pertinent History Cardiac History: Hypertension Respiratory History: Other Endocrine Medical History: No Pertinent History Musculoskeletal History: Other GI Medical History: No Pertinent History History: No Pertinent History Psycho-Social History: No Pertinent History Male Reproductive Disorders: No Pertinent History Other Medical History: HX OF TWO PREVIOUS SURGERIES LEFT SHOULDER. HX OF PREVIOUS ARTHROSCOPY RIGHT KNEE. COVID - Past Surgical History Past Surgical History: Yes (orthopedic) Neuro Surgical History: No Pertinent History Cardiac: No Pertinent History Respiratory: No Pertinent History Gastrointestinal: No Pertinent History Genitourinary: No Pertinent History Musculoskeletal: Joint Replacement, Orthopedic Surgery Male Surgical History: No Pertinent History Other Surgical History: shoulder sx both side, lt knee replacement - Social History Smoking Status: Former smoker Exposure to second hand smoke: No Alcohol Use: Chronic Drug Use: none Patient Lives Alone: No Significant Family History: no pertinent family hx - Nursing Vital Signs Nursing Vital Signs: Initial Vital Signs Temperature 97.6 F 03/17/21 06:49 Pulse Rate 69 03/17/21 06:49 Respiratory Rate 22 03/17/21 06:49 Blood Pressure 80/56 03/17/21 06:49 O2 Sat by Pulse Oximetry 96 03/17/21 06:49 Pain Scale Pain Intensity 4 Hypotensive - Physical Exam General Appearance: no apparent distress Eye Exam: PERRL/EOMI, eyes nml inspection Ears, Nose, Throat Exam: normal ENT inspection, TMs normal, pharynx normal, moist mucous membranes Neck Exam: normal inspection, non-tender, supple, full range of motion Respiratory Exam: normal breath sounds, lungs clear, airway intact Cardiovascular Exam: regular rate/rhythm, normal heart sounds, normal peripheral pulses, No murmur Gastrointestinal/Abdominal Exam: soft, normal bowel sounds Back Exam: normal inspection, normal range of motion Extremity Exam: normal inspection, normal range of motion Mental Status Exam: alert, oriented x 3, 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 Exam: normal hearing, normal speech, PERRL Motor/Sensory Exam: no motor deficit, no sensory deficit, no pronator drift DTR Exam: bicep (R): 2+, bicep (L): 2+ Skin Exam: normal color, warm, dry, No rash Lymphatic Exam: No adenopathy SpO2 Interpretation: normal SpO2: 96 O2 Delivery: Room Air - Course Nursing assessment & vital signs reviewed: Yes EKG Interpreted by Me: RATE (NSR/R71/Normal QT-QTc/No acute ST segment abnormalities) - CT Exams Head CT Interpretation: Discussed w/radiologist (Neg CT head) Ordered Tests: Active Orders 24 hr Category Date Time Status EKG-ER Only STAT Care 03/17/21 07:29 Completed HEAD WITHOUT CONTRAST [CT] Stat Exams 03/17/21 07:21 Completed CBC W DIFF Stat Lab 03/17/21 06:50 Completed CMP Stat Lab 03/17/21 06:50 Completed Manual Differential NC Stat Lab 03/17/21 06:50 Completed NT PRO BNP Stat Lab 03/17/21 06:50 Completed PROTIME WITH INR Stat Lab 03/17/21 06:50 Completed PTT Stat Lab 03/17/21 06:50 Completed TROPONIN Q3H Lab 03/17/21 06:50 Completed Medication Summary Discontinued Medications Generic Name Dose Route Start Last Admin Trade Name Freq PRN Reason Stop Dose Admin Sodium Chloride 1,000 mls @ 999 mls/hr 03/17/21 07:29 03/17/21 09:01 Sodium Chloride 0.9% 1000 Ml IV 03/17/21 08:29 Infused .Q1H1M STA Infusion Sodium Chloride Confirm 03/17/21 07:36 Sodium Chloride 0.9% 1000 Ml Administered 03/17/21 07:37 Dose 1,000 mls @ ud .ROUTE .STK-MED ONE Ketorolac Tromethamine 15 mg 03/17/21 08:51 03/17/21 08:55 Ketorolac Tromethamine 30 Mg/Ml Inj IV 03/17/21 08:52 15 mg STAT ONE Administration Ketorolac Tromethamine Confirm 03/17/21 08:54 Ketorolac Tromethamine 30 Mg/Ml Inj Administered 03/17/21 08:55 Dose 30 mg .ROUTE .STK-MED ONE Lab/Rad Data: Laboratory Result Diagrams 03/17/21 06:50 03/17/21 06:50 Laboratory Results 03/17/21 03/17/21 03/17/21 Range/Units 06:50 06:50 06:50 WBC (4.0-10.5) K/mm3 RBC (4.1-5.6) M/mm3 Hgb (12.5-18.0) gm/dl Hct (42-50) % MCV (78-100) fl MCH (26-32) pg MCHC (32-36) g/dl RDW (11.5-14.0) % Plt Count (150-450) K/mm3 MPV (7.5-11.0) fl Segmented Neutrophils (36.-66.) % Band Neutrophils (0.0-2.0) % Lymphocytes (Manual) (24-44) % Monocytes (Manual) (0.0-12.0) % Eosinophils (Manual) (0.00-3.0) % Atypical Lymphocytes % Platelet Estimate (NORMAL) RBC Morphology Polychromasia Poikilocytosis Anisocytosis PT 12.1 (9.4-12.5) SECONDS INR 1.03 (0.8-3.0) APTT 32.6 (25.1-36.5) SECONDS Sodium 134 L (137-145) mmol/L Potassium 4.4 (3.5-5.1) mmol/L Chloride 103 (98-107) mmol/L Carbon Dioxide 20 L (22-30) mmol/L Anion Gap 14.2 (5-15) MEQ/L BUN 21 H (9-20) mg/dL Creatinine 1.04 (0.66-1.25) mg/dL Estimated GFR > 60.0 ML/MIN Glucose 99 (74-106) mg/dL Calcium 9.2 (8.4-10.2) mg/dL Total Bilirubin 0.70 (0.2-1.3) mg/dL AST 62 H (17-59) U/L ALT 81 H (0-50) U/L Alkaline Phosphatase 121 (38-126) U/L Troponin I < 0.012 (0.000-0.034) ng/mL NT-Pro-B Natriuret Pep 71.1 (0-900) pg/mL Serum Total Protein 7.2 (6.3-8.2) g/dL Albumin 4.0 (3.5-5.0) g/dL 03/17/21 Range/Units 06:50 WBC 8.8 (4.0-10.5) K/mm3 RBC 4.51 (4.1-5.6) M/mm3 Hgb 15.8 (12.5-18.0) gm/dl Hct 46.2 (42-50) % MCV 102.4 H (78-100) fl MCH 35.0 H (26-32) pg MCHC 34.2 (32-36) g/dl RDW 12.5 (11.5-14.0) % Plt Count 283 (150-450) K/mm3 MPV 9.1 (7.5-11.0) fl Segmented Neutrophils 65 (36.-66.) % Band Neutrophils 2 (0.0-2.0) % Lymphocytes (Manual) 16 L (24-44) % Monocytes (Manual) 8 (0.0-12.0) % Eosinophils (Manual) 1 (0.00-3.0) % Atypical Lymphocytes 8 % Platelet Estimate NORMAL (NORMAL) RBC Morphology ABNORMAL Polychromasia 1+ Poikilocytosis 1+ Anisocytosis 1+ PT (9.4-12.5) SECONDS INR (0.8-3.0) APTT (25.1-36.5) SECONDS Sodium (137-145) mmol/L Potassium (3.5-5.1) mmol/L Chloride (98-107) mmol/L Carbon Dioxide (22-30) mmol/L Anion Gap (5-15) MEQ/L BUN (9-20) mg/dL Creatinine (0.66-1.25) mg/dL Estimated GFR ML/MIN Glucose (74-106) mg/dL Calcium (8.4-10.2) mg/dL Total Bilirubin (0.2-1.3) mg/dL AST (17-59) U/L ALT (0-50) U/L Alkaline Phosphatase (38-126) U/L Troponin I (0.000-0.034) ng/mL NT-Pro-B Natriuret Pep (0-900) pg/mL Serum Total Protein (6.3-8.2) g/dL Albumin (3.5-5.0) g/dL - Progress Progress: improved Progress Note: 03/17/21 08:52 1L NS bolus 15mg IV Toradol 03/17/21 12:02 Pt's BP increased w fluids. Sats 94% on room air Counseled pt/family regarding: lab results, diagnosis, need for follow-up, rad results - Departure Departure Disposition: Home Clinical Impression: COVID-19 Condition: Stable Critical Care Time: No Referrals: KARTHIK LOMELI MD [Primary Care Provider] - Follow up/PCP as directed Instructions: Shortness of Breath (Dyspnea) (DC) Additional Instructions: Get a pulse oximeter and monitor oxygen saturation 2-3 times a day Return to ER for persistent oxygen saturation less than 91% VitaminD 10,000units a day/[id number] a day/Pepcid 40mg a day Start Luvox 100mg a day Pulmicort 2 puffs twice a day Follow up with your family MD in 1-2 days Continue Eliquis Prescriptions: Budesonide [Pulmicort Flexhaler] 180 mcg IH BID #1 inh
[2021-03-17] MEDS ORDERED: Sodium Chloride 0.9% 1000 ML 1,000 ML IV STA (07:29)
[2021-03-17] MEDS ORDERED: Sodium Chloride 0.9% 1000 ML 1,000 ML ONE (07:36)
[2021-03-17 07:39] LABS: Hematocrit 46.2 % (42-50); Hemoglobin 15.8 gm/dl (12.5-18.0); Mean Cell Volume 102.4 fl (78-100); Mean Corpuscular Hgb Concent. 34.2 g/dl (32-36); Mean Platelet Volume 9.1 fl (7.5-11.0); Platelet Count 283 K/mm3 (150-450); Red Blood Count 4.51 M/mm3 (4.1-5.6); Red Cell Distribution Width 12.5 % (11.5-14.0); White Blood Count 8.8 K/mm3 (4.0-10.5)
[2021-03-17 07:41] LABS: INR 1.03 (0.8-3.0); PROTIME 12.1 SECONDS (9.4-12.5)
[2021-03-17 07:44] LABS: PTT 32.6 SECONDS (25.1-36.5)
[2021-03-17 07:51] LABS: ANISOCYTOSIS 1+; ATYPICAL LYMPHS 8 %; BAND 2 % (0.0-2.0); Eosinophil 1 % (0.00-3.0); Lymphocytes 16 % (24-44); Monocyte 8 % (0.0-12.0); Neutrophils 65 % (36.-66.); Poikilocytosis 1+; Polychromasia 1+; Total Cells Counted 100
[2021-03-17 07:52] LABS: Platelet Estimate NORMAL (NORMAL)
[2021-03-17 07:55] LABS: ALKALINE PHOSPHATASE 121 U/L (38-126); ANION GAP 14.2 MEQ/L (5-15); BLOOD UREA NITROGEN 21 mg/dL (9-20); CHLORIDE 103 mmol/L (98-107); Calcium 9.2 mg/dL (8.4-10.2); Carbon Dioxide 20 mmol/L (22-30); Creatinine 1 1.04 mg/dL (0.66-1.25); EST GLOMERULAR FILTRATION RATE > 60.0 ML/MIN; Glucose 99 mg/dL (74-106); NT PRO BNP 71.1 pg/mL (0-900); Potassium 4.4 mmol/L (3.5-5.1); SGOT/AST 62 U/L (17-59); SGPT/ALT 81 U/L (0-50); SODIUM 134 mmol/L (137-145); Total Protein 7.2 g/dL (6.3-8.2)
--- NOTE | 2021-03-17 08:39 | XRAY ---
Indication: Headache and short of breath. Multiple contiguous axial images obtained through the head without contrast. Comparison: January 08, 2020. Stable age-appropriate global atrophy. No acute intracranial hemorrhage, abnormal extra-axial fluid collection, or mass effect. Fourth ventricle is midline without hydrocephalus. Ray-white matter differentiation preserved. Bony calvarium intact. Stable 2.5 cm left maxillary sinus polyp/retention cyst. Remaining visualized paranasal sinuses and mastoid air cells are clear. Impression: Continued negative CT head without contrast exam again with incidental left maxillary sinus polyp/retention cyst.
[2021-03-17] MEDS ORDERED: TORAdol 30 mg Injection IV ONE (08:51)
[2021-03-17] MEDS ORDERED: TORAdol 30 mg Injection ONE (08:54)
[2021-03-17 09:19] VITALS: BP 122/73; PULSE 60
[2021-03-17 12:03] VITALS: O2SAT 96
== END 2021-03-17 09:19 | disposition home or self-care (01) ==
LOC: ED 06:37
DX: U07.1 COVID-19 (principal); R51.9 Headache, unspecified; I26.99 Other pulmonary embolism without acute cor pulmonale; R53.83 Other fatigue; R50.9 Fever, unspecified; R11.2 Nausea with vomiting, unspecified; R09.81 Nasal congestion; I10 Essential (primary) hypertension; Z79.01 Long term (current) use of anticoagulants
CPT/HCPCS: 36415; 70450; 80053; 83880; 84484; 85025; 85610; 85730; 93005; 96360; 96375; 99284; J1885

== ENCOUNTER 2023-04-09 13:36 | Emergency (ER) | payer MEDICARE ==
[2023-04-09] MEDS ORDERED: PROTONIX 40 MG IV IV ONE ×2 (13:57→14:07)
[2023-04-09] MEDS ORDERED: Sodium Chloride 0.9% 1000 ML 1,000 ML IV STA (13:57)
[2023-04-09 13:58] VITALS: PULSE 91; TEMP 97.5; O2SAT 94
[2023-04-09] MEDS ORDERED: Sodium Chloride 0.9% 1000 ML 1,000 ML ONE (14:07)
[2023-04-09 14:20] LABS: BASOPHIL % 0.7 % (0.0-0.4); Basophil (Absolute #) 0.05 x10^3/uL (0-0.4); Eosinophil % 1.9 % (0.00-5.0); Eosinophil (Absolute #) 0.13 x10^3/uL (0-0.5); Hematocrit 41.3 % (42-50); Hemoglobin 14.5 g/dL (12.5-18.0); IMMATURE GRAN # 0.03 x10^3u/L (0.00-0.03); IMMATURE GRAN % 0.4 % (0.00-0.4); Lymphocyte (Absolute #) 1.85 x10^3/uL (1.0-4.6); Lymphocytes % 27.3 % (24.0-44.0); Mean Cell Volume 100.2 fL (78-100); Mean Corpuscular Hemoglobin 35.2 pg (26-32); Mean Corpuscular Hgb Concent. 35.1 g/dL (32-36); Mean Platelet Volume 9.2 fL (7.5-11.0); Monocyte (Absolute #) 0.92 x10^3/uL (0.0-1.3); Monocytes % 13.6 % (0.0-12.0); Neutrophil % 56.1 % (36.0-66.0); Platelet Count 273 x10^3/uL (150-450); Red Blood Count 4.12 x10^6/uL (4.1-5.6); Red Cell Distribution Width 12.8 % (11.5-14.0); White Blood Count 6.8 x10^3/uL (4.0-10.5)
--- NOTE | 2023-04-09 14:29 | ERPHSYRPT ---
- History of Present Illness Time Seen by Provider: 04/09/23 14:26 Historian: patient Exam Limitations: no limitations Patient Subjective Stated Complaint: Pt states that he has had 2 bowel movements in the past hour and he had a lot of blood, one of the bowel movements did not have any bowel but a lot of blood only Triage Nursing Assessment: Pt brought self to the ER, vitals wnl, denies any pain, is going to the restroom approx every 5 minutes, pulses normal, skin n/w/d, no pain to abdomen with palpitation, skin n/w/d, diarrhea, bowel sounds heard in all 4 quadrants, abdomen distended Physician History: Pt states that he has had 2 bowel movements in the past hour and he had a lot of blood, one of the bowel movements did not have any bowel but a lot of blood only. denies any pain, is going to the restroom approximately every 5 minutes, Timing/Duration: today Associated Symptoms: weakness Previous symptoms: no prior history Allergies/Adverse Reactions: Penicillins Allergy (Intermediate, Verified 04/09/23 13:58) pt unsure benazepril Allergy (Verified 04/09/23 13:58) Difficulty Swallowing Patient states caused swelling to tongue and throat; almost needed tubed. Home Medications: Metoprolol Succinate 100 mg [Toprol Xl 100 MG] 100 mg PO DAILY 06/14/19 [History] Atorvastatin Calcium [Lipitor] 40 mg PO DAILY 04/09/23 [History] Celecoxib 200 mg PO DAILY 04/09/23 [History] Hydrochlorothiazide 25 mg [hydroDIURIL 25 MG] 25 mg PO DAILY 04/09/23 [History] Spironolactone 25 mg [Aldactone 25 MG] 25 mg PO DAILY 04/09/23 [History] Hx Tetanus, Diphtheria Vaccination/Date Given: Yes Hx Influenza Vaccination/Date Given: No Hx Pneumococcal Vaccination/Date Given: No Travel Risk - International Travel Have you traveled outside of the country in past 3 weeks: No - Coronavirus Screening Are you exhibiting any of the following symptoms?: No Close contact with a COVID-19 positive Pt in past 14-21 Days: No - Vaccine Status Have you recieved a Covid-19 vaccination: Yes [employer]: Moderna - Vaccination Dates Date of 2cond Vaccination (if applicable): 11/17/20 - Review of Systems Constitutional: No Fever, No Chills Eyes: No Symptoms Ears, Nose, & Throat: No Symptoms Respiratory: No Cough, No Dyspnea Cardiac: No Chest Pain, No Edema, No Syncope Abdominal/Gastrointestinal: Hematochezia, No Abdominal Pain, No Nausea, No Vomiting, No Diarrhea Genitourinary Symptoms: No Dysuria Musculoskeletal: No Back Pain, No Neck Pain Skin: No Rash Neurological: No Dizziness, No Focal Weakness, No Sensory Changes Psychological: No Symptoms Endocrine: No Symptoms All Other Systems: Reviewed and Negative - Past Medical History Pertinent Past Medical History: Yes Neurological History: No Pertinent History ENT History: No Pertinent History Cardiac History: Hypertension Respiratory History: Other Endocrine Medical History: No Pertinent History Musculoskeletal History: Other GI Medical History: No Pertinent History History: No Pertinent History Psycho-Social History: No Pertinent History Male Reproductive Disorders: No Pertinent History Other Medical History: COVID - Past Surgical History Past Surgical History: Yes (orthopedic) Neuro Surgical History: No Pertinent History Cardiac: No Pertinent History Respiratory: No Pertinent History Gastrointestinal: No Pertinent History Genitourinary: No Pertinent History Musculoskeletal: Joint Replacement, Orthopedic Surgery Male Surgical History: No Pertinent History Other Surgical History: shoulder sx both side, lt knee replacement - Social History Smoking Status: Former smoker Exposure to second hand smoke: No Alcohol Use: Chronic Drug Use: none Patient Lives Alone: No Significant Family History: no pertinent family hx - Nursing Vital Signs Nursing Vital Signs: Initial Vital Signs Temperature 97.5 F 04/09/23 13:49 Pulse Rate 91 H 04/09/23 13:49 Blood Pressure 138/86 04/09/23 13:49 O2 Sat by Pulse Oximetry 94 L 04/09/23 13:49 Pain Scale Pain Intensity 0 - Physical Exam General Appearance: no apparent distress, alert Eye Exam: PERRL/EOMI, eyes nml inspection Ears, Nose, Throat Exam: normal ENT inspection, pharynx normal, moist mucous membranes Neck Exam: normal inspection, non-tender, supple, full range of motion Respiratory Exam: normal breath sounds, lungs clear, No respiratory distress Cardiovascular Exam: regular rate/rhythm, normal heart sounds Gastrointestinal/Abdomen Exam: soft, No tenderness, No mass Back Exam: normal inspection, normal range of motion, No CVA tenderness, No vertebral tenderness Extremity Exam: normal inspection, normal range of motion, pelvis stable Neurologic Exam: alert, oriented x 3, cooperative, normal mood/affect, nml cerebellar function, sensation nml, No motor deficits Skin Exam: normal color, warm, dry SpO2: 94 - CT Exams Abdomen/Pelvis CT Interpretation: Tele-radiologist Report Ordered Tests: Active Orders 24 hr Category Date Time Status ABDOMEN AND PELVIS W/0 CONTRAS [CT] Stat Exams 04/09/23 14:35 Completed AMYLASE Stat Lab 04/09/23 14:00 Completed CBC W DIFF Stat Lab 04/09/23 13:57 Completed CMP Stat Lab 04/09/23 14:00 Completed LIPASE Stat Lab 04/09/23 14:00 Completed OB-FECAL SCREEN Stat Lab 04/09/23 Ordered TROPONIN Q4H Lab 04/09/23 14:00 Completed TROPONIN Q4H Lab 04/09/23 18:00 Ordered TROPONIN Q4H Lab 04/09/23 22:00 Ordered UA W/RFX UR CULTURE Stat Lab 04/09/23 13:58 Ordered Medication Summary Discontinued Medications Generic Name Dose Route Start Last Admin Trade Name Freq PRN Reason Stop Dose Admin Sodium Chloride 1,000 mls @ 999 mls/hr 04/09/23 13:57 04/09/23 14:13 Sodium Chloride 0.9% 1000 Ml IV 04/09/23 14:57 999 mls/hr .Q1H1M STA Administration Sodium Chloride Confirm 04/09/23 14:07 Sodium Chloride 0.9% 1000 Ml Administered 04/09/23 14:08 Dose 1,000 mls @ ud .ROUTE .STK-MED ONE Pantoprazole Sodium 40 mg 04/09/23 13:57 04/09/23 14:13 Pantoprazole 40 Mg Vial IV 04/09/23 13:58 40 mg STAT ONE Administration Pantoprazole Sodium Confirm 04/09/23 14:07 Pantoprazole 40 Mg Vial Administered 04/09/23 14:08 Dose 40 mg IV .STK-MED ONE Lab/Rad Data: Laboratory Result Diagrams 04/09/23 13:57 04/09/23 14:00 Laboratory Results 04/09/23 04/09/23 04/09/23 Range/Units 14:10 14:00 14:00 WBC (4.0-10.5) x10^3/uL RBC (4.1-5.6) x10^6/uL Hgb (12.5-18.0) g/dL Hct (42-50) % MCV (78-100) fL MCH (26-32) pg MCHC (32-36) g/dL RDW (11.5-14.0) % Plt Count (150-450) x10^3/uL MPV (7.5-11.0) fL Gran % (36.0-66.0) % Immature Gran % (Auto) (0.00-0.4) % Nucleat RBC Rel Count (0.00-0.1) % Eos # (Auto) (0-0.5) x10^3/uL Immature Gran # (Auto) (0.00-0.03) x10^3u/L Absolute Lymphs (auto) (1.0-4.6) x10^3/uL Absolute Monos (auto) (0.0-1.3) x10^3/uL Absolute Nucleated RBC (0.00-0.01) x10^3u/L Lymphocytes % (24.0-44.0) % Monocytes % (0.0-12.0) % Eosinophils % (0.00-5.0) % Basophils % (0.0-0.4) % Absolute Granulocytes (1.4-6.9) x10^3/uL Basophils # (0-0.4) x10^3/uL Sodium 137 (137-145) mmol/L Potassium 3.9 (3.5-5.1) mmol/L Chloride 105 (98-107) mmol/L Carbon Dioxide 24 (22-30) mmol/L Anion Gap 11.6 (5-15) MEQ/L BUN 19 (9-20) mg/dL Creatinine 0.74 (0.66-1.25) mg/dL Estimated GFR 99.9 ML/MIN Glucose 80 (74-106) mg/dL Calcium 9.7 (8.4-10.2) mg/dL Total Bilirubin 0.60 (0.2-1.3) mg/dL AST 52 (17-59) U/L ALT 45 (0-50) U/L Alkaline Phosphatase 166 H (38-126) U/L Troponin I < 0.012 (0.000-0.034) ng/mL Serum Total Protein 7.4 (6.3-8.2) g/dL Albumin 4.3 (3.5-5.0) g/dL Amylase 110 (30-110) U/L Lipase 238 (23-300) U/L ABO Group O Rh Factor POSITIVE Antibody Screen NEGATIVE (NEGATIVE) 04/09/23 Range/Units 13:57 WBC 6.8 (4.0-10.5) x10^3/uL RBC 4.12 (4.1-5.6) x10^6/uL Hgb 14.5 (12.5-18.0) g/dL Hct 41.3 L (42-50) % MCV 100.2 H (78-100) fL MCH 35.2 H (26-32) pg MCHC 35.1 (32-36) g/dL RDW 12.8 (11.5-14.0) % Plt Count 273 (150-450) x10^3/uL MPV 9.2 (7.5-11.0) fL Gran % 56.1 (36.0-66.0) % Immature Gran % (Auto) 0.4 (0.00-0.4) % Nucleat RBC Rel Count 0.0 (0.00-0.1) % Eos # (Auto) 0.13 (0-0.5) x10^3/uL Immature Gran # (Auto) 0.03 (0.00-0.03) x10^3u/L Absolute Lymphs (auto) 1.85 (1.0-4.6) x10^3/uL Absolute Monos (auto) 0.92 (0.0-1.3) x10^3/uL Absolute Nucleated RBC 0.00 (0.00-0.01) x10^3u/L Lymphocytes % 27.3 (24.0-44.0) % Monocytes % 13.6 H (0.0-12.0) % Eosinophils % 1.9 (0.00-5.0) % Basophils % 0.7 (0.0-0.4) % Absolute Granulocytes 3.80 (1.4-6.9) x10^3/uL Basophils # 0.05 (0-0.4) x10^3/uL Sodium (137-145) mmol/L Potassium (3.5-5.1) mmol/L Chloride (98-107) mmol/L Carbon Dioxide (22-30) mmol/L Anion Gap (5-15) MEQ/L BUN (9-20) mg/dL Creatinine (0.66-1.25) mg/dL Estimated GFR ML/MIN Glucose (74-106) mg/dL Calcium (8.4-10.2) mg/dL Total Bilirubin (0.2-1.3) mg/dL AST (17-59) U/L ALT (0-50) U/L Alkaline Phosphatase (38-126) U/L Troponin I (0.000-0.034) ng/mL Serum Total Protein (6.3-8.2) g/dL Albumin (3.5-5.0) g/dL Amylase (30-110) U/L Lipase (23-300) U/L ABO Group Rh Factor Antibody Screen (NEGATIVE) CT/ABDOMEN AND PELVIS W/0 CONTRAS CLINICAL HISTORY: GI bleed, Abdominal distension TECHNIQUE: CT scan of the abdomen and pelvis without intravenous contrast administration. COMPARISON: None. FINDINGS: The liver is of average size, regular contour and homogeneous texture with few small hypodense lesions, largest lesion measuring about 9 x11mm probably cyst at the segment VIII of the right lobe was noted on a non-contrast basis. No intra hepatic biliary radical dilatation. The spleen is of average size and shape with homogeneous parenchyma and no focal lesion could be noted on non-contrast basis. Both kidneys are of normal size, shape and parenchymal thickness with no stones, back pressure changes or space occupying lesions on non-contrast basis. Minimal perinephric stranding around both kidneys. Few pancreatic calcifications noted probably related to prior pancreatic insult. No adrenal mass No significant lymph yanely enlargement or ascitic fluid collection. Focal colonic diverticula involving sigmoid colon without evidence of diverticulitis [Series 2; image #84/105]. No significant bowel dilatation. Normal-appearing appendix Dense mural atheromatous calcification of the aorta and its main branches. Normal filling of the urinary bladder with no stones, masses, or diverticula. Average sized prostate Bone window settings showed spondylotic changes of the lumber spine with no evidence of fractures or destructive lesions. Lung window settings showed bilateral lower basal interstitial and emphysematous lung changes. 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 IMPRESSION: 1. Few small hepatic cysts in a non-contrast based study. 2. Focal colonic diverticula involving sigmoid colon without evidence of diverticulitis 3. Dense mural atheromatous calcification of the aorta and its main branches. 4. Bilateral lower basal interstitial and emphysematous lung changes. 5. 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 - Progress Progress: improved (no active bleeding) Progress Note: 04/09/23 15:58 CT/ABDOMEN AND PELVIS W/0 CONTRAS CLINICAL HISTORY: GI bleed, Abdominal distension TECHNIQUE: CT scan of the abdomen and pelvis without intravenous contrast administration. COMPARISON: None. FINDINGS: The liver is of average size, regular contour and homogeneous texture with few small hypodense lesions, largest lesion measuring about 9 x11mm probably cyst at the segment VIII of the right lobe was noted on a non-contrast basis. No intra hepatic biliary radical dilatation. The spleen is of average size and shape with homogeneous parenchyma and no focal lesion could be noted on non-contrast basis. Both kidneys are of normal size, shape and parenchymal thickness with no stones, back pressure changes or space occupying lesions on non-contrast basis. Minimal perinephric stranding around both kidneys. Few pancreatic calcifications noted probably related to prior pancreatic insult. No adrenal mass No significant lymph yanely enlargement or ascitic fluid collection. Focal colonic diverticula involving sigmoid colon without evidence of diverticulitis [Series 2; image #84/105]. No significant bowel dilatation. Normal-appearing appendix Dense mural atheromatous calcification of the aorta and its main branches. Normal filling of the urinary bladder with no stones, masses, or diverticula. Average sized prostate Bone window settings showed spondylotic changes of the lumber spine with no evidence of fractures or destructive lesions. Lung window settings showed bilateral lower basal interstitial and emphysematous lung changes. 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 IMPRESSION: 1. Few small hepatic cysts in a non-contrast based study. 2. Focal colonic diverticula involving sigmoid colon without evidence of diverticulitis 3. Dense mural atheromatous calcification of the aorta and its main branches. 4. Bilateral lower basal interstitial and emphysematous lung changes. 5. 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 04/09/23 15:59 Patient hemoglobin is 14.5. Rest of the laboratory data are normal. CT abdomen and pelvis is also negative. Patient has remained symptom-free. Patient did not have any more bleeding per rectum. Patient is advised to call office for further evaluation including colonoscopy. Medical Desision Making - Diagnostic Testing Diagnostic test were ordered, analyzed, and reviewed by me: Yes Radiological Interpretation: Teleradiologist Report - Risk of complications Low Risk: Low risk of morbidity from additional dx testing or treatment - Departure Departure Disposition: Home Clinical Impression: Hematochezia, Rectal bleeding Condition: Stable Critical Care Time: No Referrals: KARTHIK LOMELI MD [Primary Care Provider] - Follow Up with PCP/3 days Instructions: Gastrointestinal Bleeding (DC) Additional Instructions: Stop Celexobib (Celebrex) Discharge/Care Plan ANGÉLICA EATON was seen on 04/09/23 in the Emergency Room. The patient was counseled regarding Diagnosis,Lab results, Imaging studies, need for follow up and when to return to the Emergency Room. Prescriptions given: Discharge Note I have spoken with the patient and/or caregivers. I have explained the patient's condition, diagnosis and treatment plan based on the information available to me at this time. I have answered the patient's and/or caregiver's questions and addressed any concerns. The patient and/or caregivers have as good understanding of the patient's diagnosis, condition and treatment plan as can be expected at this point. The vital signs have been stable. The patient's condition is stable and appropriate for discharge from the emergency department. The patient will pursue further outpatient evaluation with the primary care physician or other designated or consulting physician as outlined in the discharge instructions. The patient and/or caregivers are agreeable to this plan of care and follow-up instructions have been explained in detail. The patient and/or caregivers have received these instruction. The patient/and or caregivers are aware that any significant change in condition or worsening of symptoms should prompt an immediate return to this or the closest emergency department or call 911. ANGÉLICA EATON was seen on 04/09/23 n the Emergency Room. At that time you were treated for an emergent condition, during your visit Laboratory, Radiology and/or other procedures may have been ordered. It is very important that you follow-up with your Primary Care Physician KARTHIK LOMELI within the next 24-48 hours to review your Emergency Room visit and the final results of testing that was ordered. Some test results such as Urine Cultures, Blood Cultures, and other cultures if ordered will not be finalized for 24-48 hours. If you do not have a Primary Care Provider please call the medical records department at [phone] ext [phone] to obtain a copy of your results or you may sign into our patient portal to obtain these results by visiting us @ [email or web address] and completing the following steps: 1. Click on the Patient Portal link 2. Click the Patient Self Enrollment Link to complete the enrollment form and entering your 3. Once the enrollment form is completed you will receive an email with a temporary ID and password at the email address you provided. 4. Next choose a user name and password. Your user name must be at least 4 characters long and your password must be at least 4 characters long. 5. Choose a security question from the list and provide your answer to the question. If you already have signed into the Health Portal you may access your Health Care Information 26/09 by the following steps: 1. Login to our website @ [email or web address] 2. Enter your original user name and password. FAQS The [facility] Health Portal is an online tool that contains your Lab Results, Radiology Reports, Visit History, Discharge Instructions and Health Summary Lab and Radiology Results will not be available for 72 hours on the portal. The Portal is a secure site, passwords are encryted and URLs are re-written so they cannot be copied and pasted. You and authorized family members are the only ones who can access your Portal. Also there is a timeout feature that protects your information if you leave the Portal page open. If you have technical difficulty please use the Contact Us link on the page this will allow you to submit any questions you have regarding the Portal or you may contact the Medical Record Department at [phone] ext [phone].
[2023-04-09 14:34] LABS: ALBUMIN 4.3 g/dL (3.5-5.0); ANION GAP 11.6 MEQ/L (5-15); BILIRUBIN,TOTAL 0.6 mg/dL (0.2-1.3); Calcium 9.7 mg/dL (8.4-10.2); Creatinine 1 0.74 mg/dL (0.66-1.25); EST GLOMERULAR FILTRATION RATE 99.9 ML/MIN; Potassium 3.9 mmol/L (3.5-5.1); Total Protein 7.4 g/dL (6.3-8.2)
[2023-04-09 14:59] LABS: ABO TYPING O; Antibody Screen NEGATIVE (NEGATIVE); RH TYPING POSITIVE
--- NOTE | 2023-04-09 15:54 | XRAY ---
CLINICAL HISTORY: GI bleed, Abdominal distension TECHNIQUE: CT scan of the abdomen and pelvis without intravenous contrast administration. COMPARISON: None. FINDINGS: The liver is of average size, regular contour and homogeneous texture with few small hypodense lesions, largest lesion measuring about 9 x11mm probably cyst at the segment VIII of the right lobe was noted on a non-contrast basis. No intra hepatic biliary radical dilatation. The spleen is of average size and shape with homogeneous parenchyma and no focal lesion could be noted on non-contrast basis. Both kidneys are of normal size, shape and parenchymal thickness with no stones, back pressure changes or space occupying lesions on non-contrast basis. Minimal perinephric stranding around both kidneys. Few pancreatic calcifications noted probably related to prior pancreatic insult. No adrenal mass No significant lymph yanely enlargement or ascitic fluid collection. Focal colonic diverticula involving sigmoid colon without evidence of diverticulitis [Series 2; image #84/105]. No significant bowel dilatation. Normal-appearing appendix Dense mural atheromatous calcification of the aorta and its main branches. Normal filling of the urinary bladder with no stones, masses, or diverticula. Average sized prostate Bone window settings showed spondylotic changes of the lumber spine with no evidence of fractures or destructive lesions. Lung window settings showed bilateral lower basal interstitial and emphysematous lung changes. 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 IMPRESSION: 1. Few small hepatic cysts in a non-contrast based study. 2. Focal colonic diverticula involving sigmoid colon without evidence of diverticulitis 3. Dense mural atheromatous calcification of the aorta and its main branches. 4. Bilateral lower basal interstitial and emphysematous lung changes. 5. 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 Electronically Signed by: Brenda Pedroza MD. (04/09/2023 15:49:26 EST)
[2023-04-09 16:03] VITALS: BP 125/86
== END 2023-04-09 16:07 | disposition home or self-care (01) ==
LOC: ED 13:36
DX: K62.5 Hemorrhage of anus and rectum (principal); I10 Essential (primary) hypertension; Z79.899 Other long term (current) drug therapy; Z86.16 Personal history of COVID-19
CPT/HCPCS: 36000; 36415; 74176; 80053; 82150; 83690; 84484; 85025; 86850; 86900; 86901; 96360; 96374; 99284